=== PATIENT | female | born 1960 | race Caucasian/White ===

== ENCOUNTER → 2024-06-07 | Outpatient (CLI) | payer MEDICARE, MEDICAID, SELFPAY ==
--- NOTE | 2024-06-07 11:30 | XR_ITS ---
Examination: Screening digital mammography, bilateral Computer aided detection 3-D breast Tomosynthesis, bilateral Date and time of exam: June 07, 2024 1112 hrs. Compared to mammograms dated to September 05, 2021 Indication: Screening Technique: Nonmagnified MLO, CC views of the breasts to been obtained, reconstructed from 3-D Tomosynthesis images. R2 computer aided detection program utilized for evaluation of suspicious masses and/or abnormal calcifications. 3-D Tomosynthesis images obtained. Findings: Scattered areas of fibroglandular density. Benign calcifications. No interval suspicious masses Impression: BI-RADS category II: Benign Findings. Recommend 1 year follow-up mammogram.
== END | disposition home or self-care (01) ==
PROVIDERS: Referring Provider Nurse Practitioner Primary Care; Visit Provider Nurse Practitioner Primary Care
DX: Z12.31 Encounter for screening mammogram for malignant neoplasm of breast (principal); R92.1 Mammographic calcification found on diagnostic imaging of breast
CPT/HCPCS: 77063; 77067

== ENCOUNTER 2024-08-10 21:11 | Emergency (ER) | payer MEDICARE, MEDICAID, SELFPAY ==
[2024-08-10 21:12] VITALS: BMI 25.6
[2024-08-10 22:41] VITALS: BP 151/80; PULSE 66; RESP 18; TEMP 36.8; O2SAT 99
--- NOTE | 2024-08-10 22:53 | XR_ITS ---
Examination: CT abdomen with intravenous contrast CT pelvis with intravenous contrast 2-D coronal reconstructions 2-D sagittal reconstructions Date and time of exam:August 11, 2024 at 0039 hours Comparison 02/09/2024 INDICATIONS: Nausea vomiting abdominal pain beginning 4 days ago. CTDI: vol (mGy) 6.63 DLP: (mGycm) 326 Technique: Multiple axial sections of the abdomen and pelvis have been obtained. 64 slice high-resolution scanner used. 3 mm axial sections have been obtained, post intravenous injection of 60 cc [id number] 2-D sagittal, coronal reconstructions obtained. Low dose protocols were performed. One or more of the following dose reduction techniques were used; automated exposure control, adjustment of the mA and/or KV according to patient size, use of iterative reconstruction technique. Findings: No focal liver or splenic lesions Gastric sutures Small retrocardiac gastric hernia Cholelithiasis, negative for cholecystitis Abdominal aortic calcification no aneurysmal dilatation Mild diffuse wall thickening involving the colon No obstruction No pericecal inflammatory change No free air Intact urinary bladder Moderate disc narrowing L2-L3 IMPRESSION: Mild diffuse nonspecific colitis pattern
--- NOTE | 2024-08-10 22:54 | EDRME_ITS ---
Rapid Medical Screening Exam [facility] Arrival date/time: 08/10/24 21:11 63F with history of gastric bypass surgery and hysterectomy presents to ED with several days of worsening L-sided (possibly burning) ab pain and N/V. Patient cannot keep fluids down. Chief Complaint: Abdominal Pain Vital signs: Vital Signs Temperature 98.2 F 08/10/24 22:41 Pulse Rate 66 08/10/24 22:41 Respiratory Rate 18 08/10/24 22:41 Blood Pressure 151/80 H 08/10/24 22:41 Pulse Oximetry (%) 99 08/10/24 22:41 Oxygen Delivery Method Room Air 08/10/24 22:41
[2024-08-10] MEDS: MORPHINE SULF INJ 10 MG/ML VIAL 5 MG IVP (23:21)
[2024-08-10] MEDS: ONDANSETRON INJ 2 MG/ML INJ 2 ML 4 MG IV (23:22)
[2024-08-10 23:23] LABS: Lactate (Lactic Acid) 0.5 mMol/L (0.4-2.0)
[2024-08-10 23:27] LABS: Basophils % (Auto) 0 % (0-2.5); Eosinophils # (Auto) 0.1 Thou/mm3 (0.0-0.5); Eosinophils % (Auto) 1 % (0-10); Hematocrit 36.4 % (36.0-46.0); Hemoglobin 11.8 g/dL (12.0-16.0); Immature Granulocytes % (Auto) 0 % (0-0); Immature Granulocytes Auto 0.02 Thou/mm3 (0.00-0.00); Lymphocytes # (Auto) 1.5 Thou/mm3 (1.0-4.8); Lymphocytes % (Auto) 22 % (10-50); Mean Corpuscular HGB Conc 32.4 g/dl (31.0-37.0); Mean Corpuscular Hemoglobin 26.5 pg (25.0-35.0); Mean Corpuscular Volume 82 fL (80-100); Monocytes # (Auto) 0.5 Thou/mm3 (0.0-0.8); Monocytes % (Auto) 7 % (0-12); Neutrophils % (Auto) 69 % (37-80); Nucleated Red Blood Cell % 0 /100 WBC (0); Platelet Count 190 Thou/mm3 (140-440); RDW Standard Deviation 46.6 fL (36.4-46.3); Red Blood Count 4.45 Miln/mm3 (4.00-5.20); White Blood Count 7.2 Thou/mm3 (3.6-11.0)
[2024-08-10 23:45] LABS: Alanine Aminotransferase 11 U/L (10-49); Albumin, Serum 4.3 gm/dL (3.4-4.8); Albumin/Globulin Ratio 1.7 (1.2-2.2); Alkaline Phosphatase 108 U/L (46-116); Anion Gap 6 (7-16); Aspartate Amino Transferase 15 U/L (0-34); BUN/Creatinine Ratio 11 Ratio (12-20); Bilirubin,Total 0.4 mg/dL (0.3-1.2); Blood Urea Nitrogen 10 mg/dL (9-23); Calcium 9.4 mg/dL (8.3-10.6); Calcium (Corrected) 9.4 mg/dL (8.5-10.1); Carbon Dioxide 26.5 mMol/L (20.0-31.0); Chloride 106 mMol/L (98-107); Creatinine (Component) 0.9 mg/dL (0.6-1.3); Estimated Creatinine Clearance 56.7 mL/min (>60); Globulin 2.5 gm/dL (2.3-3.5); Glucose 94 mg/dL (74-106); Lipase 34 U/L (12-53); Osmolality,Calculated 274 (275-295); Potassium 3.9 mMol/L (3.4-5.1); Sodium 138 mMol/L (136-145); Total Protein 6.8 gm/dL (5.7-8.2); eGFR > 60 See Note
[2024-08-10 23:47] LABS: Collection Type, Urine Clean Catch
[2024-08-10 23:53] LABS: Bilirubin,Urine Negative (Negative); Blood,Urine Negative (Negative); Clarity,Urine Clear (Clear/Hazy); Color,Urine Yellow (Lt Yel-Yel); Culture Indicated,Urine Not Indicated; Glucose, Urine Negative (Negative); Ketones,Urine 1+ (Negative); Leukocyte Esterase,Urine Positive (Negative); Nitrite,Urine Negative (Negative); PH,Urine 5.5 (5.0-7.0); Protein,Urine Trace (Neg - Trace); RBC,Urine 1 /hpf (0-3); Specific Gravity,Urine 1.027 (1.001-1.035); Squamous Epithelial Cell,Urine 1 /hpf (0-5); Urobilinogen,Urine Negative mg/dL (0.0-1.0); WBC,Urine 1 /hpf (0-5)
--- NOTE | 2024-08-11 01:52 | PRELIM_ITS ---
CT scan of the abdomen and pelvis with intravenous contrast (axial sections with sagittal and coronal reformats) August 11, 2024 0037 hours Clinical History: Left-sided abdominal pain and nausea/vomiting. Comparison: None available at the time of this report. Findings: The lung bases are clear. The liver, pancreas, spleen, kidneys, and adrenals are unremarkable. Gallstones without evidence of acute cholecystitis. Status post hysterectomy. No evidence of bowel obstruction. No evidence of appendicitis. There is no mesenteric or retroperitoneal adenopathy. The urinary bladder is unremarkable. There is no free fluid or free air. Degenerative changes of the imaged portions of the spine. No acute fractures. Vascular calcifications. Status post gastric bypass surgery. Fluid stools throughout the colon associated with mild colonic wall thickening. No pericolonic fat stranding. IMPRESSION: Probable mild colitis. Report Electronically Signed By: Kashif Dia 08/11/2024 1:51:23 AM [EST]
--- NOTE | 2024-08-11 02:37 | EDNOTE_ITS ---
ED Abdominal Pain RME/HPI General Chief Complaint: Abdominal Pain Stated complaint: ABD PAIN, N/V X 4 DAYS Arrival date/time: 08/10/24 21:11 Source: patient Mode of arrival: ambulatory Limitations: no limitations RME / HPI RME / HPI narrative: 08/10/24 21:11 63F with history of gastric bypass surgery and hysterectomy presents to ED with several days of worsening L-sided (possibly burning) ab pain and N/V. Patient cannot keep fluids down. Dr. Castro?s Main ED Evaluation: 63-year-old female presents to the ED with abdominal pain that began four days ago. The pain is worsened by eating and is accompanied by nausea and vomiting, though she denies diarrhea. She also reports constipation but denies taking any pain medications for relief. The patient states she has experienced similar episodes in the past, but this episode is more severe than usual. She is unable to tolerate oral intake due to persistent nausea and vomiting. No history of fever, chills, dysuria, recent travel, or sick contacts. Related Data Previous Rx's ?Medication ?Instructions ?Recorded pantoprazole 40 mg tablet,delayed 40 mg PO QDAY #60 ta bs 06/07/20 release (Protonix) docusate sodium 50 mg capsule 50 mg PO BID PRN constip ation #20 08/11/24 caps magnesium citrate 300 ml PO QDAY PRN constipat ion 3 08/11/24 days #296 mL ondansetron 4 mg disintegrating 4 mg PO Q6H PRN nausea and 08/11/24 tablet vomiting #14 tabs Allergies Allergy/AdvReac Type Severity Reaction Status Date / Time NSAIDS (Non-Steroidal AdvReac Severe Abdominal Verified 08/10/24 21:14 Anti-Inflamma Pain Review of Systems Review of Systems Systems Reviewed: All systems reviewed, normal except as documented Past Medical History Past Medical History CARDIAC: Negative Cardiac Disorders or Congestive Heart Failure RESPIRATORY: Positive Asthma; Negative Chronic Obstructive Pulmonary Disease (COPD) GENITOURINARY: Negative Renal Disease ENDOCRINE: Negative Diabetes Mellitus Type 1 or Diabetes Mellitus Type 2 HEMATOLOGIC: Negative Sickle Cell Disease Surgical History SURGICAL: Positive Gastric Bypass Surgery Social History SMOKING STATUS: Current some day smoker ED Exam General Limitations: Present no limitations General appearance: Present alert and in no apparent distress Head Head exam: Present atraumatic Eye Eye exam: Present normal appearance, PERRL and EOMI ENT ENT exam: Present normal exam, normal oropharynx and mucous membranes moist Neck Neck exam: Present normal inspection, full ROM and trachea midline Chest Chest inspection: Present normal inspection and symmetric chest wall rise Respiratory Respiratory exam: Present normal lung sounds bilaterally Cardiovascular Cardiovascular exam: Present regular rate, normal rhythm and normal heart sounds Abdominal Exam Abdominal exam: Present soft and normal bowel sounds Extremities Exam Extremities exam: Present normal inspection and full ROM Back Exam Back exam: Present normal inspection and full ROM Neurological Exam Neurological exam: Present alert, oriented X3 and CN II-XII intact Psychiatric Psychiatric exam: Present normal affect and normal mood Skin Skin exam: Present warm, dry, intact and normal color Course Quality Measures none Orders Category Date Time Status CT Screening NOW Care 08/10/24 22:53 Completed Insert IV NOW Care 08/10/24 22:[address] abdomen pelvis w con Stat Exams 08/10/24 22:53 Taken CBC Stat Lab 08/10/24 23:16 Completed CMP [Comprehensive Metabolic Panel] Stat Lab 08/10/24 23:16 Completed Lactate (Lactic Acid) Stat Lab 08/10/24 23:16 Completed Lipase Stat Lab 08/10/24 23:16 Completed Urinalysis, C/S if Indicated Stat Lab 08/10/24 23:41 Completed Magnesium Citrate Liqd [Citrate of Magnesia Liqd] Med 08/11/24 02:59 Discontinued 300 ml PO X1 ONE Morphine Inj Med 08/10/24 22:53 Discontinued 5 mg IVP X1 ONE Ondansetron Inj [Zofran Inj] Med 08/10/24 22:53 Discontinued 4 mg IV X1 ONE Ondansetron Inj [Zofran Inj] Med 08/11/24 02:59 Discontinued 4 mg IV X1 ONE Vital Signs Vital signs: Vital Signs Temperature 98.2 F 08/10/24 22:41 Pulse Rate 66 08/10/24 22:41 Respiratory Rate 18 08/10/24 22:41 Blood Pressure 151/80 H 08/10/24 22:41 Pulse Oximetry (%) 99 08/10/24 22:41 Oxygen Delivery Method Room Air 08/10/24 22:41 Abdominal Pain MDM MDM Narrative MDM Narrative:: Scribe Attestation: ICorina, ovidio scribing for and in the presence of Dr. Castro. Provider Notation: Although this document has been carefully reviewed, there may still be some phonetic and other typographical errors. These errors are purely grammatical due to imperfections in the software program and should not be construed in any way to compromise the substance of the patient's medical care during this visit. Patient data External records reviewed:: [facility] previous records Clinical information provided by:: patient Social determinants that could affect healthcare access:: none Patient has the following chronic illnesses:: Se How is presenting disease/condition affected by chronic disease/condition?: uneffected by Evaluation data The following diagnostics were reviewed and interpreted by me:: lab results and radiology exam(s) Lab and/or radiology exams considered but not ordered:: na Interpretation Summary: CT scan of the abdomen and pelvis with intravenous contrast (axial sections with sagittal and coronal reformats) August 11, 2024 0037 hours Clinical History: Left-sided abdominal pain and nausea/vomiting. Comparison: None available at the time of this report. Findings: The lung bases are clear. The liver, pancreas, spleen, kidneys, and adrenals are unremarkable. Gallstones without evidence of acute cholecystitis. Status post hysterectomy. No evidence of bowel obstruction. No evidence of appendicitis. There is no mese nteric or retroperitoneal adenopathy. The urinary bladder is unremarkable. There is no free fluid or free air. Degenerative changes of the imaged portions of the spine. No acute fractures. Vascular calcifications. Status post gastric bypass surgery. Fluid stools throughout the colon associated with mild colonic wall thickening. No pericolonic fat stranding. IMPRESSION: Probable mild colitis. Report Electronically Signed By: Kashif Dia 08/11/2024 1:51:23 AM [EST] Medications / Prescriptions Medications or Prescriptions considered but not ordered:: a Medication administrations:: Medication Administration History Discontinued Medications Magnesium Citrate (Magnesium Citrate 300 Ml Btl) 300 ml PO X1 ONE Stop: 08/11/24 03:00 Last Admin: 08/11/24 03:29 Dose: 300 ml Documented By: GB Morphine Sulfate (Morphine Sulf Inj 10 Mg/Ml Vial) 5 mg IVP X1 ONE Stop: 08/10/24 22:54 Last Admin: 08/10/24 23:21 Dose: 5 mg Documented By: EE Ondansetron HCl (Ondansetron Inj 2 Mg/Ml Inj 2 Ml) 4 mg IV X1 ONE; Protocol Stop: 08/10/24 22:54 Last Admin: 08/10/24 23:22 Dose: 4 mg Documented By: CANDICE Ondansetron HCl (Ondansetron Inj 2 Mg/Ml Inj 2 Ml) 4 mg IV X1 ONE; Protocol Stop: 08/11/24 03:00 Last Admin: 08/11/24 03:28 Dose: 4 mg Documented By: ROMINA corona Consultations Consultation(s) initiated? (list below): No Diagnosis Differential diagnosis abdominal pain: abdominal pain, constipation and small bowel obstruction Most likely diagnosis given after review of the tests above:: Abdominal pain, vomiting Admission Indicated Admission indicated?: not indicated Admission Request Was there a request for admission?: No Disposition Plan Disposition Plan: Discharge Discharge Attestation Discharge Attestation: The patient and all family members were given an opportunity to ask questions and understood the discharge instructions. Discharge instructions specifically effects, indications for sooner follow up or return to the emergency department, and the expected course of current diagnosis. Patient condition: Stable Discharge Plan Plan Patient Disposition: HOME (Self Care) Disposition Comment: Stable for discharge home Patient condition on transfer: Stable Prescriptions/Referrals Prescriptions/Med Rec: New magnesium citrate Solution 300 ml PO QDAY PRN (Reason: constipation) 3 Days Qty: 296 0RF docusate sodium 50 mg capsule 50 mg PO BID PRN (Reason: constipation) Qty: 20 0RF ondansetron 4 mg tablet,disintegrating 4 mg PO Q6H PRN (Reason: nausea and vomiting) Qty: 14 0RF No Action pantoprazole [Protonix] 40 mg tablet,delayed release (DR/EC) 40 mg PO QDAY Qty: 60 0RF Referrals: [facility] [Outside] - In 1 week Problem List Clinical Impression: Vomiting, Abdominal pain, Constipation Patient/Caregiver Discharge Instructions Discharge Activity: activity as tolerated Education Materials: Abdominal Pain, Treating Constipation, ED Constipation (Adult), ED Diet for Vomiting or ..., ED Vomiting (Adult) Additional Instructions: Please return to the emergency department if you have any worsening or any further medical problems. Otherwise you should follow-up with your primary care doctor or in the family [facility] care clinic within the next several days please. Print Language: Luxembourgish Stand Alone Forms: Suzette Award Info., Patient Portal Info Letter
[2024-08-11] MEDS: ONDANSETRON INJ 2 MG/ML INJ 2 ML 4 MG IV (03:28)
[2024-08-11] MEDS: MAGNESIUM CITRATE 300 ML BTL PO (03:29)
[2024-08-11 03:34] VITALS: BP 148/72; PULSE 68; RESP 20; TEMP 36.9; O2SAT 99
== END 2024-08-11 03:35 | disposition home or self-care (01) ==
PROVIDERS: Physician Assistant; Emergency Provider Emergency Medicine
DX: K59.00 Constipation, unspecified (principal); R11.2 Nausea with vomiting, unspecified; Z98.84 Bariatric surgery status
CPT/HCPCS: 36415; 71045; 74177; 80053; 81001; 83605; 83690; 84484; 85025; 96374; 96375; 96376; 99283; 99285; A4649; J2270; J2405; Q9967; A9270

== ENCOUNTER 2024-08-11 20:28 | Emergency (ER) | payer MEDICARE, MEDICAID, SELFPAY ==
[2024-08-11 20:28] VITALS: BMI 25.6
[2024-08-11 20:34] VITALS: BP 143/83; PULSE 72; RESP 18; TEMP 36.8; O2SAT 98
--- NOTE | 2024-08-11 20:51 | XR_ITS ---
Examination: PA chest single view TECHNIQUE: Upright PA chest single view Examination time: August 11, 20242115 hours Comparison December 22, 2022 INDICATIONS: Chest pain today FINDINGS: Normal heart size. No lobar pneumonia or pulmonary edema. The osseous structures are intact IMPRESSION: No lobar pneumonia or pulmonary edema
[2024-08-11] MEDS: FAMOTIDINE 20 MG TABLET 40 MG PO (21:01)
[2024-08-11] MEDS: MG HYD/AL HYD/SIME (Maalox Reg) SUSP 30 ML UDC PO (21:02)
[2024-08-11 21:23] LABS: Basophils % (Auto) 0 % (0-2.5); Eosinophils # (Auto) 0.1 Thou/mm3 (0.0-0.5); Eosinophils % (Auto) 2 % (0-10); Hematocrit 36.3 % (36.0-46.0); Hemoglobin 12.1 g/dL (12.0-16.0); Immature Granulocytes % (Auto) 0 % (0-0); Immature Granulocytes Auto 0.01 Thou/mm3 (0.00-0.00); Lymphocytes % (Auto) 16 % (10-50); Mean Corpuscular HGB Conc 33.3 g/dl (31.0-37.0); Mean Corpuscular Hemoglobin 27.1 pg (25.0-35.0); Mean Corpuscular Volume 81 fL (80-100); Monocytes # (Auto) 0.4 Thou/mm3 (0.0-0.8); Monocytes % (Auto) 6 % (0-12); Neutrophils # (Auto) 4.9 Thou/mm3 (1.8-7.7); Neutrophils % (Auto) 77 % (37-80); Nucleated Red Blood Cell % 0 /100 WBC (0); Platelet Count 191 Thou/mm3 (140-440); RDW Standard Deviation 45.5 fL (36.4-46.3); Red Blood Count 4.47 Miln/mm3 (4.00-5.20); White Blood Count 6.4 Thou/mm3 (3.6-11.0)
[2024-08-11 21:40] LABS: Alanine Aminotransferase 10 U/L (10-49); Albumin, Serum 4.3 gm/dL (3.4-4.8); Albumin/Globulin Ratio 1.6 (1.2-2.2); Alkaline Phosphatase 109 U/L (46-116); Anion Gap 7 (7-16); Aspartate Amino Transferase 16 U/L (0-34); BUN/Creatinine Ratio 13 Ratio (12-20); Bilirubin,Total 0.3 mg/dL (0.3-1.2); Blood Urea Nitrogen 10 mg/dL (9-23); Calcium 9.7 mg/dL (8.3-10.6); Calcium (Corrected) 9.7 mg/dL (8.5-10.1); Carbon Dioxide 26.7 mMol/L (20.0-31.0); Chloride 106 mMol/L (98-107); Creatinine (Component) 0.8 mg/dL (0.6-1.3); Estimated Creatinine Clearance 63.8 mL/min (>60); Globulin 2.7 gm/dL (2.3-3.5); Glucose 94 mg/dL (74-106); Lipase 30 U/L (12-53); Osmolality,Calculated 278 (275-295); Potassium 3.8 mMol/L (3.4-5.1); Sodium 140 mMol/L (136-145); Troponin I < 0.002 ng/mL (0.0-0.045); eGFR > 60 See Note
--- NOTE | 2024-08-12 00:32 | PD.EDABDPN ---
ED Abdominal Pain RME/HPI General Chief Complaint: Abdominal Pain Stated complaint: UPPER ABDOMINAL PAIN Time seen by provider: 08/11/24 20:50 Arrival date/time: 08/11/24 20:28 63F with history of gastric bypass surgery and hysterectomy presents to ED with several days of burning epigastric pain and tenesmus. Patient was here yesterday and diagnosed with viral gastroenteritis. Patient states N/V is much better but pain is still present. Limitations: no limitations Related Data Previous Rx's ?Medication ?Instructions ?Recorded pantoprazole 40 mg tablet,delayed 40 mg PO QDAY #60 tabs 06/07/20 release (Protonix) docusate sodium 50 mg capsule 50 mg PO BID PRN constipation #20 08/11/24 caps magnesium citrate 300 ml PO QDAY PRN constipation 3 08/11/24 days #296 mL ondansetron 4 mg disintegrating 4 mg PO Q6H PRN nausea and 08/11/24 tablet vomiting #14 tabs Allergies Allergy/AdvReac Type Severity Reaction Status Date / Time NSAIDS (Non-Steroidal AdvReac Severe Abdominal Verified 08/10/24 21:14 Anti-Inflamma Pain Review of Systems Review of Systems Systems Reviewed: All systems reviewed, normal except as documented Constitutional Constitutional: Reports system reviewed and no additional complaints, except as documented, Denies fever(s) and Denies headache(s) ENT Ears, Nose, Mouth, and Throat: Denies disequilibrium and Denies headache(s) Cardiovascular Cardiovascular: Reports system reviewed and no additional complaints, except as documented, Denies chest pain and Denies dyspnea Respiratory Respiratory: Reports system reviewed and no additional complaints, except as documented, Denies cough and Denies dyspnea Gastrointestinal Gastrointestinal: Reports system reviewed and no additional complaints, except as documented, Reports as per HPI, Reports abdominal pain, Denies nausea and Denies vomiting Neurologic Neurologic: Reports system reviewed and no additional complaints, except as documented, Denies confusion, Denies disequilibrium and Denies headache(s) Psychiatric Psychiatric: Denies confusion Past Medical History Past Medical History CARDIAC: Negative Cardiac Disorders or Congestive Heart Failure RESPIRATORY: Positive Asthma; Negative Chronic Obstructive Pulmonary Disease (COPD) GENITOURINARY: Negative Renal Disease ENDOCRINE: Negative Diabetes Mellitus Type 1 or Diabetes Mellitus Type 2 HEMATOLOGIC: Negative Sickle Cell Disease Surgical History SURGICAL: Positive Gastric Bypass Surgery Social History SMOKING STATUS: Current some day smoker ED Exam General Limitations: Present no limitations General appearance: Present alert and in no apparent distress Head Head exam: Present atraumatic Eye Eye exam: Present normal appearance, PERRL and EOMI ENT ENT exam: Present normal exam, normal oropharynx and mucous membranes moist Neck Neck exam: Present normal inspection, full ROM and trachea midline Chest Chest inspection: Present normal inspection and symmetric chest wall rise Respiratory Respiratory exam: Present normal lung sounds bilaterally Cardiovascular Cardiovascular exam: Present regular rate, normal rhythm and normal heart sounds Abdominal Exam Abdominal exam: Present soft and normal bowel sounds Extremities Exam Extremities exam: Present normal inspection and full ROM Back Exam Back exam: Present normal inspection and full ROM Neurological Exam Neurological exam: Present alert, oriented X3 and CN II-XII intact Psychiatric Psychiatric exam: Present normal affect and normal mood Skin Skin exam: Present warm, dry, intact and normal color Course Quality Measures none Orders Category Date Time Status XR chest 1V portable Stat Exams 08/11/24 20:51 Completed CBC Stat Lab 08/11/24 21:15 Completed CMP [Comprehensive Metabolic Panel] Stat Lab 08/11/24 21:15 Completed Lipase Stat Lab 08/11/24 21:15 Completed Troponin I Stat Lab 08/11/24 21:15 Completed Famotidine [Pepcid] Med 08/11/24 20:51 Discontinued 40 mg PO X1 ONE mg Hyd/Al Hyd/Susannah Susp [Maalox Susp] Med 08/11/24 20:51 Discontinued 30 ml PO X1 ONE Vital Signs Vital signs: Vital Signs Temperature 98.2 F 08/11/24 20:34 Pulse Rate 72 08/11/24 20:34 Respiratory Rate 18 08/11/24 20:34 Blood Pressure 143/83 H 08/11/24 20:34 Pulse Oximetry (%) 98 08/11/24 20:34 Oxygen Delivery Method Room Air 08/11/24 20:34 O2 at 98% on RA and WNLs Abdominal Pain MDM MDM Narrative MDM Narrative:: 63F with history of gastric bypass surgery and hysterectomy presents to ED with several days of burning epigastric pain and tenesmus. Patient was here yesterday and diagnosed with viral gastroenteritis. Patient states N/V is much better but pain is still present. Physical exam reveals no ab tenderness. Patient is afebrile, alert, and calm. CXR normal. No leukocytosis. CMP unremarkable. Lipase normal. Trop normal. GI cocktail improved symptoms. Patient data External records reviewed:: [facility] previous records Clinical information provided by:: patient Social determinants that could affect healthcare access:: none Patient has the following chronic illnesses:: gastric bypass surgery and hysterectomy How is presenting disease/condition affected by chronic disease/condition?: exacerbated by Evaluation data The following diagnostics were reviewed and interpreted by me:: lab results and radiology exam(s) Lab and/or radiology exams considered but not ordered:: ordered Interpretation Summary: above Medications / Prescriptions Medications or Prescriptions considered but not ordered:: ordered Medication administrations:: Medication Administration History Discontinued Medications Al Hydrox/Mg Hydrox/Simethicone (Mg Hyd/Al Hyd/Susannah (Maalox Reg) Susp 30 Ml Udc) 30 ml PO X1 ONE Stop: 08/11/24 20:52 Last Admin: 08/11/24 21:02 Dose: 30 ml Documented By: Famotidine (Famotidine 20 Mg Tablet) 40 mg PO X1 ONE Stop: 08/11/24 20:52 Last Admin: 08/11/24 21:01 Dose: 40 mg Documented By: above Consultations Consultation(s) initiated? (list below): No Diagnosis Differential diagnosis abdominal pain: abdominal pain, acute appendicitis, calculus of kidney, constipation, diverticulitis, endometriosis, gastroenteritis, pancreatitis and small bowel obstruction Most likely diagnosis given after review of the tests above:: gastroenteritis Admission Indicated Admission indicated?: not indicated Admission Request Was there a request for admission?: No Disposition Plan Disposition Plan: Discharge Discharge Attestation Discharge Attestation: The patient and all family members were given an opportunity to ask questions and understood the discharge instructions. Discharge instructions specifically effects, indications for sooner follow up or return to the emergency department, and the expected course of current diagnosis. Patient condition: Stable Discharge Plan Plan Patient Disposition: HOME (Self Care) Disposition Comment: Stable Prescriptions/Referrals Prescriptions/Med Rec: No Action pantoprazole [Protonix] 40 mg tablet,delayed release (DR/EC) 40 mg PO QDAY Qty: 60 0RF magnesium citrate Solution 300 ml PO QDAY PRN (Reason: constipation) 3 Days Qty: 296 0RF docusate sodium 50 mg capsule 50 mg PO BID PRN (Reason: constipation) Qty: 20 0RF ondansetron 4 mg tablet,disintegrating 4 mg PO Q6H PRN (Reason: nausea and vomiting) Qty: 14 0RF Referrals: Andrea DALEY)Maite FNP [Primary Care Provider] - In 1 week Problem List Clinical Impression: Gastroenteritis Patient/Caregiver Discharge Instructions Education Materials: ED Gastroenteritis, Viral (Adult) Additional Instructions: Please follow-up with PCP within 24-48 hours and return immediately if symptoms worsen. Can try OTC TUMs and or Pepcid. Print Language: German Stand Alone Forms: Patient Portal Info Letter DONNY/SVETLANA Supervising Physician DONNY/SVETLANA Supervising Physician: Dr. Almaguer
== END 2024-08-11 22:09 | disposition home or self-care (01) ==
PROVIDERS: Physician Assistant; Emergency Provider Emergency Medicine; PCP Nurse Practitioner Primary Care
DX: A08.4 Viral intestinal infection, unspecified (principal); R07.9 Chest pain, unspecified
CPT/HCPCS: 36415; 71045; 80053; 83690; 84484; 85025; 99283; A9270